=== PATIENT | male | born 1950 | race Caucasian/White ===

== ENCOUNTER 2019-04-24 09:59 | Inpatient (IN) | payer OTHER, MEDICARE ==
[~2019-04-24] VITALS: Ht 185.4 cm; Wt 73.9 kg
[2019-04-24] MEDS ORDERED: Prinivil10 MG PO (10:08)
[2019-04-24 10:21] LABS: BASOPHILS ABSOLUTE AUTO 0.05 K/mm3 (0.00-0.23); BASOPHILS PERCENT AUTO 1 % (0-2); EOSINOPHILS ABSOLUTE AUTO 0.12 K/mm3 (0.00-0.68); EOSINOPHILS PERCENT AUTO 1 % (0-6); Hematocrit 40.2 % (37.0-53.0); Hemoglobin 13.4 g/dL (13.5-17.5); IMMATURE GRAN ABSOLUTE AUTO 0.02 K/mm3 (0.00-0.10); IMMATURE GRAN PERCENT AUTO 0 % (0-1); LYMPHOCYTES PERCENT AUTO 11 % (21-46); MONOCYTES ABSOLUTE AUTO 0.53 K/mm3 (0.16-1.47); MONOCYTES PERCENT AUTO 6 % (4-13); Mean Corpuscular HGB 30.6 pg (26.0-34.0); Mean Corpuscular HGB Conc 33.3 g/dL (31.5-36.5); Mean Corpuscular Volume 92 fL (80-100); Mean Platelet Volume 11.1 fL (9.1-12.4); NEUTROPHILS ABSOLUTE AUTO 7.34 K/mm3 (1.96-9.15); NEUTROPHILS PERCENT AUTO 81 % (41-73); Platelet Count 249 K/mm3 (150-400); RDW Coefficient Variation 12.8 % (11.7-14.2); RDW Standard Deviation 43.3 fL (35.1-46.3); Red Blood Cell Count 4.38 M/mm3 (4.30-5.90); White Blood Cell Count 9.06 K/mm3 (4.00-11.30)
[2019-04-24 10:40] LABS: Influenza A Negative (NEGATIVE); Influenza B Negative (NEGATIVE)
[2019-04-24 10:46] LABS: Albumin/Globulin Ratio 0.9 (0.8-1.8); Anion Gap 8 mmol/L (6-16); Aspartate Aminotrans (AST/SGOT 33 U/L (12-37); Bilirubin, Total 0.4 mg/dL (0.1-1.0); Blood Urea Nitrogen 16 mg/dL (8-24); CO2, Blood 24 mmol/L (21-32); Calcium, Blood 8.2 mg/dL (8.5-10.1); Chloride, Blood 109 mmol/L (98-108); Globulin, Blood 3.4 g/dL (2.2-4.0); Glucose, Blood 152 mg/dL (70-99); Potassium, Blood 3.8 mmol/L (3.5-5.5); Sodium, Blood 141 mmol/L (136-145); Total Protein, Blood 6.4 g/dL (6.4-8.2)
[2019-04-24 10:48] LABS: Troponin I 0.042 ng/mL (0.000-0.040)
[2019-04-24 10:54] LABS: Alanine Aminotransfer (ALT/SGP 26 U/L (12-78); Alk Phos 59 U/L (50-136); Bun/Creatinine Ratio 21.6 (12.0-20.0); Creatinine, Blood 0.74 mg/dL (0.60-1.20); Glomerular Filtration Rate >60 (60-)
[2019-04-24 12:36] LABS: Source, Urine Clean Catch
[2019-04-24 12:40] LABS: Bilirubin, Urine Neg (Neg); Blood, Urine Neg (Neg); Glucose Qualitative, Urine Neg (Neg); Ketones, Urine Neg (Neg); Leukocyte Esterase, Urine Neg (Neg); Nitrite, Urine Neg (Neg); Protein, Urine 2+ (Neg); Specific Gravity, Urine 1.015 (1.003-1.022); Urobilinogen, Urine NORM (Normal)
[2019-04-24] MEDS ORDERED: THERA1 EACH PO (13:25)
[2019-04-24] MEDS ORDERED: ZINC220 PO (13:25)
[2019-04-24 13:32] LABS: Appearance, Urine Clear (Clear); Color, Urine Yellow (P-Yellow)
[2019-04-24 13:35] LABS: Hyaline Casts 0-2 /lpf (0-2)
[2019-04-24 13:36] LABS: Bacteria Few /hpf; Red Blood Cells, Urine 0-2 /hpf (0-2); Squamous Epithelial Cells Not Seen /hpf (Few); White Blood Cells, Urine 0-2 /hpf (0-5)
--- NOTE | 2019-04-24 15:16 | NUR ---
SHIFT SUMMARY PT ADMITTED FROM THE ER THIS AFTERNOON. HE IS A/O X 4 WITH NO C/O PAIN. PT REPORTS IT IS HARD TO TAKE A DEEP BREATH BUT HE IS FEELING MUCH BETTER NOW THAN HE DID WHEN HE ARRIVED TO THE ER THIS MORNING. HE IS ABLE TO WALK FROM THE W/C TO THE BATHROOM IND AND BACK TO BED AGAIN. PT IS AT BEDSIDE. PT IS PLEASANT AND COOPERATIVE WITH HIS CARE. PT AND WERE ORIENTED TO HIS ROOM AND NURSING STAFF, ALL QUESTIONS WERE ANSWERED UPON ARRIVAL. PT IS RESTING IN BED NOW AND ABLE TO MAKE HIS NEEDS KNOWN. CALL LIGHT IN REACH.
[2019-04-24 21:44] LABS: Adenovirus Not Detected (NOT DETECT); Bordetella pertussis Not Detected (NOT DETECT); Chlamydophila pneumoniae Not Detected (NOT DETECT); Coronavirus 229E Not Detected (NOT DETECT); Coronavirus HKU1 Not Detected (NOT DETECT); Coronavirus NL63 Not Detected (NOT DETECT); Coronavirus OC43 Not Detected (NOT DETECT); Human Metapneumovirus Not Detected (NOT DETECT); Human Rhinovirus/Enterovirus Not Detected (NOT DETECT); Influenza A Not Detected (NOT DETECT); Influenza A/2009-H1 Not Detected (NOT DETECT); Influenza A/H1 Not Detected (NOT DETECT); Influenza A/H3 Not Detected (NOT DETECT); Influenza B Not Detected (NOT DETECT); Mycoplasma pneumoniae Not Detected (NOT DETECT); Parainfluenza Virus 1 Not Detected (NOT DETECT); Parainfluenza Virus 2 Not Detected (NOT DETECT); Parainfluenza Virus 3 Not Detected (NOT DETECT); Parainfluenza Virus 4 Not Detected (NOT DETECT); Respiratory Syncytial Virus Not Detected (NOT DETECT)
[2019-04-25 02:10] LABS: Hematocrit 43.6 % (37.0-53.0); Hemoglobin 14.6 g/dL (13.5-17.5); Mean Corpuscular HGB 30.6 pg (26.0-34.0); Mean Corpuscular HGB Conc 33.5 g/dL (31.5-36.5); Mean Corpuscular Volume 91 fL (80-100); Mean Platelet Volume 10.7 fL (9.1-12.4); Platelet Count 301 K/mm3 (150-400); RDW Coefficient Variation 12.9 % (11.7-14.2); RDW Standard Deviation 43.7 fL (35.1-46.3); Red Blood Cell Count 4.77 M/mm3 (4.30-5.90); White Blood Cell Count 5.98 K/mm3 (4.00-11.30)
[2019-04-25 02:30] LABS: Anion Gap 7 mmol/L (6-16); Blood Urea Nitrogen 22 mg/dL (8-24); Bun/Creatinine Ratio 25.3 (12.0-20.0); CO2, Blood 26 mmol/L (21-32); Chloride, Blood 106 mmol/L (98-108); Creatinine, Blood 0.87 mg/dL (0.60-1.20); Glomerular Filtration Rate >60 (60-); Glucose, Blood 118 mg/dL (70-99); Magnesium, Blood 1.9 mg/dL (1.6-2.4); Phosphorus, Blood 4.2 mg/dL (2.5-4.9); Potassium, Blood 4.2 mmol/L (3.5-5.5); Sodium, Blood 139 mmol/L (136-145); Troponin I 0.017 ng/mL (0.000-0.040)
--- NOTE | 2019-04-25 04:37 | NUR ---
SHIFT SUMMARY PATIENT ALERT AND ORIENTED. SLEPT WELL ALL NIGHT AND HAD MINIMAL NEEDS. BOTH IVS PATENT AND FLUSHED. BED IN LOWEST POSITION WITH WHEELS LOCKED. CALL LIGHT AND BELONGINGS WITHIN REACH. REPORT GIVEN TO ONCOMING RN.
--- NOTE | 2019-04-25 14:43 | NUR ---
permission of care given to nursing director by pateint 04-25-2019.
--- NOTE | 2019-04-25 18:44 | NUR ---
PT HAD CARDIOLOGY CONSULT CALLED. EF 20% . PATIENT HAS HAD NO COMPLAINTS OF PAIN, NV, SOB. HE IS ALERT AND ORIENTED AND ABLE TO EXPRESS ANY NEEDS. PT TO BE NPO MD SALAS. CALL ALONA SUMMERS.
--- NOTE | 2019-04-26 04:25 | NUR ---
SHIFT SUMMARY- PT. A&O, INDEPENDENT IN ROOM. DENIED C/O PAIN OR DISCOMFORT T/O THE SHIFT. PT. NPO, SCHEDULED FOR ANGIOGRAM IN THE AM. NO ACUTE CHANGES TO CONDITION, SPOUSE AT BEDSIDE. CALL LIGHT WITHIN REACH AND SIDE RAILS UP X2. WILL CONT TO MONITOR.
[2019-04-26 05:22] LABS: BASOPHILS ABSOLUTE AUTO 0.07 K/mm3 (0.00-0.23); BASOPHILS PERCENT AUTO 1 % (0-2); EOSINOPHILS PERCENT AUTO 3 % (0-6); Hemoglobin 14.1 g/dL (13.5-17.5); IMMATURE GRAN ABSOLUTE AUTO 0.02 K/mm3 (0.00-0.10); IMMATURE GRAN PERCENT AUTO 0 % (0-1); LYMPHOCYTES ABSOLUTE AUTO 2.07 K/mm3 (0.84-5.20); LYMPHOCYTES PERCENT AUTO 26 % (21-46); MONOCYTES ABSOLUTE AUTO 0.59 K/mm3 (0.16-1.47); MONOCYTES PERCENT AUTO 7 % (4-13); Mean Corpuscular HGB 30.9 pg (26.0-34.0); Mean Corpuscular HGB Conc 33.6 g/dL (31.5-36.5); Mean Corpuscular Volume 92 fL (80-100); Mean Platelet Volume 11.3 fL (9.1-12.4); NEUTROPHILS ABSOLUTE AUTO 4.98 K/mm3 (1.96-9.15); NEUTROPHILS PERCENT AUTO 63 % (41-73); Platelet Count 249 K/mm3 (150-400); Red Blood Cell Count 4.56 M/mm3 (4.30-5.90); White Blood Cell Count 7.93 K/mm3 (4.00-11.30)
[2019-04-26 05:53] LABS: Alanine Aminotransfer (ALT/SGP 29 U/L (12-78); Albumin/Globulin Ratio 0.9 (0.8-1.8); Alk Phos 54 U/L (50-136); Anion Gap 7 mmol/L (6-16); Aspartate Aminotrans (AST/SGOT 37 U/L (12-37); Bilirubin, Total 0.4 mg/dL (0.1-1.0); Blood Urea Nitrogen 23 mg/dL (8-24); Bun/Creatinine Ratio 29.9 (12.0-20.0); CHOL/HDL RATIO 3.8; CO2, Blood 26 mmol/L (21-32); Calcium, Blood 8.4 mg/dL (8.5-10.1); Chloride, Blood 105 mmol/L (98-108); Cholesterol 160 mg/dL (50-200); Creatinine, Blood 0.77 mg/dL (0.60-1.20); Globulin, Blood 3.3 g/dL (2.2-4.0); Glomerular Filtration Rate >60 (60-); Glucose, Blood 99 mg/dL (70-99); HDL Cholesterol 42 mg/dL (>39); Sodium, Blood 138 mmol/L (136-145); Total Protein, Blood 6.3 g/dL (6.4-8.2)
[2019-04-26 06:03] LABS: LDL/HDL RATIO 2.4; Low Density Lipoprotein Chol 101 mg/dL (0-110); Triglycerides 85 mg/dL (30-160); Very Low Density Lipoprot Chol 17 mg/dL (6-32)
--- NOTE | 2019-04-26 09:07 | NUR ---
permission for care wa given at 0905 04/26/2019.
--- NOTE | 2019-04-26 14:17 | NUR ---
SHIFT SUMMARY PT HAS HAD NO ACUTE CHANGES THIS SHIFT, NO COMPLAINTS OF ANY KIND. LILIANE HELD THIS SHIFT PER DR GARCIA, PT TRANSPORTED VIA W/C TO [facility] @ [id number], BELONGINGS MOVED TO [facility]
--- NOTE | 2019-04-26 15:15 | NUR ---
ASSUMED CARE: PT ARRIVED FROM [facility] WITH TR BAND IN PLACE. SITE TO RIGHT WRIST WITH NO HEMATOMA OR BLEEDING NOTED. DENIES NUMBNESS OR TINGLING. ARM BOARD AT SITE AND PT HAS BEEN INSTRUCTED ABOUT PROTECTIVE MEASURES SO TO NOT MAKE SITE REBLEED.
--- NOTE | 2019-04-26 18:28 | NUR ---
SHIFT SUMMARY: PT'S RIGHT RADIAL SITE REMAINS WITHOUT SIGN OF BLEEDING OR HEMATOMA. TR BAND WITH 6/10CC REMOVED SO FAR. PT AMBULATORY AND INDEPENDENT IN ROOM. AT BEDSIDE. NO ACUTE NEEDS OR CONCERNS
--- NOTE | 2019-04-26 21:35 | NUR ---
TR BAND REMOVED PATIENT'S RIGHT RADIAL ACCESS SITE WNL, BAND REMOVED W/O ISSUE. NO BLEEDING, NO SWELLING, NO NEW PAIN, NO REDNESS TO SITE, WHICH WAS THEN COVERED WITH CLEAR TEGADERM DRESSING. SENSATION TO PERIPHERY INTACT, PER PATIENT, O2 SAT AT FINGERTIP 95%, CAP REFILL < 3 SEC. ARM BOARD REPLACED AND PATIENT ADVISED THAT ARM BOARD WILL STAY IN PLACE FOR THE NEXT 24-48 HOURS. PATIENT RETURN VERBALIZED INSTRUCTIONS
--- NOTE | 2019-04-27 02:18 | NUR ---
ASSUMED CARE PATIENT LYING IN BED IN NO SIGN OF DISTRESS. IN ROOM. VERIFIED STATUS OF RIGHT RADIAL ACCESS SITE W/ OUTGOING RN'S; 8 OF 12 CC OF AIR REMOVED FROM TR BAND. RADIAL SITE IS CLEAN, NO SWELLING, NO REDNESS, NO BLEEDING, NO HEMATOMA. PATIENT DENIES PAIN. STATES SENSATION INTACT TO FINGERS DISTAL TO SITE. CAP REFILL < 3 SEC TO SAME. ALL VSS, BLOOD PRESSURE SLIGHTLY DIMINISHED. WILL CONTINUE TO MONITOR AND PROVIDE CARE, CALL LIGHT IN REACH
[2019-04-27 04:06] LABS: BASOPHILS ABSOLUTE AUTO 0.07 K/mm3 (0.00-0.23); BASOPHILS PERCENT AUTO 1 % (0-2); EOSINOPHILS PERCENT AUTO 4 % (0-6); Hematocrit 45.8 % (37.0-53.0); Hemoglobin 15.2 g/dL (13.5-17.5); IMMATURE GRAN ABSOLUTE AUTO 0.01 K/mm3 (0.00-0.10); IMMATURE GRAN PERCENT AUTO 0 % (0-1); LYMPHOCYTES ABSOLUTE AUTO 1.86 K/mm3 (0.84-5.20); LYMPHOCYTES PERCENT AUTO 26 % (21-46); MONOCYTES ABSOLUTE AUTO 0.56 K/mm3 (0.16-1.47); MONOCYTES PERCENT AUTO 8 % (4-13); Mean Corpuscular HGB 30.6 pg (26.0-34.0); Mean Corpuscular HGB Conc 33.2 g/dL (31.5-36.5); Mean Corpuscular Volume 92 fL (80-100); Mean Platelet Volume 10.8 fL (9.1-12.4); NEUTROPHILS ABSOLUTE AUTO 4.42 K/mm3 (1.96-9.15); NEUTROPHILS PERCENT AUTO 61 % (41-73); Platelet Count 247 K/mm3 (150-400); RDW Coefficient Variation 12.8 % (11.7-14.2); RDW Standard Deviation 43.2 fL (35.1-46.3); Red Blood Cell Count 4.96 M/mm3 (4.30-5.90); White Blood Cell Count 7.22 K/mm3 (4.00-11.30)
[2019-04-27 04:36] LABS: Anion Gap 7 mmol/L (6-16); Blood Urea Nitrogen 22 mg/dL (8-24); Bun/Creatinine Ratio 24.8 (12.0-20.0); CO2, Blood 27 mmol/L (21-32); Calcium, Blood 8.7 mg/dL (8.5-10.1); Chloride, Blood 105 mmol/L (98-108); Creatinine, Blood 0.89 mg/dL (0.60-1.20); Glomerular Filtration Rate >60 (60-); Glucose, Blood 85 mg/dL (70-99); Potassium, Blood 4.2 mmol/L (3.5-5.5); Sodium, Blood 139 mmol/L (136-145)
--- NOTE | 2019-04-27 07:28 | NUR ---
ASSUMED PATIENT CARE. PATENT RESTING COMFORTABLY IN BED. NO SIGNS OF ACUTE DISTRESS, WCTM.
--- NOTE | 2019-04-27 07:43 | NUR ---
SHIFT SUMMARY NO NEW CHANGES. PATIENT SLEPT T/O SHIFT EXCEPT WHEN UP TO VOID, INDEPENDENT IN ROOM. NOTHING OUTSIDE OF ROUTINE MEDICATIONS, ROUTINE ROUNDINGS, AND VITALS CHECKS. RIGHT RADIAL ACCESS SITE REMAINED INTACT, NO NEW BLEEDING, REDNESS, PAIN, NOR SWELLING. ARM BOARD IN PLACE CARE AND REPORT PASSED TO ONCOMING SHIFT. BED LOCKED AND LOW, CALL LIGHT IN REACH
--- NOTE | 2019-04-27 08:19 | NUR ---
PATIENT SITTING COMFORTABLY IN BED SPEAKING WITH PROVIDER, PLAN IS TO DISCHARGE PATIENT TOMORROW AFTER CONTINUED DIURESIS AND MONITORING.
--- NOTE | 2019-04-27 12:15 | NUR ---
PATIENT SITTING COMFORTABLY IN BED EATNIG LUNCH, APPEARS TO TOLERATE MEAL WELL. NO SIGNS OF ACUTE DISTRESS, EQUAL BILATERAL CHEST RISE WITH BREATH, PATIENT DOES NOT ENDORSE CHEST PAIN NOR CHEST TIGHTNESS, WCTM.
--- NOTE | 2019-04-27 18:53 | NUR ---
NO NEW CHANGES IN PATIENT CONDITION THROUGHOUT DAY. PATIENT AND SPOUSE EDUCATED ON PLAN OF CARE AND ANTICIPATED DISCHARGE TOMORROW. PATIENT EDUCATED ON LIFE VESTBY PROVIDER AT BEDSIDE. NO NEW DRAINAGE ON WRIST INCISION. VITALS, MEDICATIONS AND NURSIN MONITORING PROVIDED ACCORDING TO UNIT PROTOCOL.
--- NOTE | 2019-04-27 19:27 | NUR ---
RELINQUISHED PATIENT CARE.
--- NOTE | 2019-04-27 19:32 | NUR ---
ASSUMED CARE PATIENT AWAKE AND ALERT IN BED, DEIES PAIN, DENIES DISCOMFORT. BREATHING EASY. BLOOD PRESSURE LOW, BUT WNL. PATIENT INDEPENDENT IN ROM, WILL CONTINUE TO MONITOR AND PROVIDE CARE
[2019-04-28 04:14] LABS: Anion Gap 6 mmol/L (6-16); Blood Urea Nitrogen 25 mg/dL (8-24); Bun/Creatinine Ratio 30.8 (12.0-20.0); CO2, Blood 25 mmol/L (21-32); Calcium, Blood 8.5 mg/dL (8.5-10.1); Chloride, Blood 107 mmol/L (98-108); Creatinine, Blood 0.81 mg/dL (0.60-1.20); Glomerular Filtration Rate >60 (60-); Glucose, Blood 90 mg/dL (70-99); Potassium, Blood 4.1 mmol/L (3.5-5.5); Sodium, Blood 138 mmol/L (136-145)
[2019-04-28] MEDS ORDERED: FURO40 PO (09:45)
[2019-04-28] MEDS ORDERED: CARV3.125 PO (09:45)
[2019-04-28] MEDS ORDERED: ATOR40TA PO (09:45)
[2019-04-28] MEDS ORDERED: POTCHL20ER PO (09:46)
[2019-04-28] MEDS ORDERED: ENTRESTO 24 MG1 EACH PO (09:47)
[2019-04-28] MEDS ORDERED: PLAVIX75 MG PO (13:22)
--- NOTE | 2019-04-28 13:45 | NUR ---
DISCHARGE INSTRUCTIONS GONE OVER WITH PT AND . INFORMED HOW TO RESEARCH LABORATORY SPECIALIST PRESCRIPTIONS AND HOW TO TAKE. WENT OVER IN DETAIL NEW MEDS. ALL QUESTIONS ANSWERED. BELONGINGS GATHERED AND GIVEN TO PT. PT WAS ESCORTED OUT VIA W/C TO POV BY RN AND WITH .
== END 2019-04-28 13:48 | disposition home or self-care (01) | DRG 286 ==
LOC: ER 09:59 → MEDS 10:00 → PCU 04-26 15:05
PROVIDERS: Emergency Medicine; Hospitalist; Internal Medicine; Internal Medicine Cardiovascular Disease; ADMIT Internal Medicine
PROC: 4A023N7 Measurement of Cardiac Sampling and Pressure, Left Heart, Percutaneous Approach (ICD-10-PCS; principal; 2019-04-26)
PROC: B2111ZZ Fluoroscopy of Multiple Coronary Arteries using Low Osmolar Contrast (ICD-10-PCS; 2019-04-26)
PROC: B2151ZZ Fluoroscopy of Left Heart using Low Osmolar Contrast (ICD-10-PCS; 2019-04-26)
DX: I11.0 Hypertensive heart disease with heart failure (principal); I50.21 Acute systolic (congestive) heart failure; I47.2 Ventricular tachycardia; G45.9 Transient cerebral ischemic attack, unspecified; N40.0 Benign prostatic hyperplasia without lower urinary tract symptoms; Z96.652 Presence of left artificial knee joint; Z88.8 Allergy status to other drugs, medicaments and biological substances; I42.9 Cardiomyopathy, unspecified
CPT/HCPCS: 0099U; 36415; 70450; 71046; 71260; 80048; 80053; 80061; 81001; 82947; 83735; 83880; 84100; 84145; 84443; 84484; 85025; 85027; 85347; 87804; 93005; 93010; 93306; 93308; 93321; 93458; 93571; 93572; 93880; 94760; 96374-59; 96375-59; 99152; 99153; 99285-25; A9270; C1769; C1887; C1894; G0378; J1644; J1650; J1940; J2250; J2405; J2930; J3010; J7030; J7040; Q9967

== ENCOUNTER 2019-09-06 08:18 | Day surgery (SDC) | payer OTHER ==
[~2019-09-06] VITALS: Ht 185.4 cm; Wt 76.6 kg
[~2019-09-06 08:18] MED LIST: ATOR40TA PO; CARV3.125 PO; ENTRESTO 24 MG1 EACH PO; FURO40 PO; PLAVIX75 MG PO; POTCHL20ER PO; Prinivil10 MG PO; SPIR25 PO; THERA1 EACH PO; ZINC220 PO
--- NOTE | 2019-09-06 09:19 | NUR ---
AT BEDSIDE DISCUSSING CONSENT FOR PACEMAKER ICD PLACEMENT. PT GIVEN ICD PACEMAKER PACKET FROM OFFICE TO REVIEW. PT DENIES ANY QUESTIONS OR CONCERNS AT THIS TIME. UNKNOWN AT THIS TIME IF PT IS TO BE ADMITTED OR TO GO HOME TODAY. VSS. WILL CONTINUE TO MONITOR.
--- NOTE | 2019-09-06 11:42 | NUR ---
PHONE CALL TO , TYSON @ [phone], INFORMING HER OF PT BEING ADMITTED FOR THE NIGHT. WILL CALL LATER FOR UPDATES.
--- NOTE | 2019-09-06 18:14 | NUR ---
SHIFT NOTE PT ARRIVED FROM HEART CENTER THIS AFTERNOON POST SINGLE CHAMBER ICD PALCEMENT SUBPECTORALIS LT CHEST. PT IS A/O X4 ANSWERING QUESTIONS APPROPRIATELY IN FULL SENTENCES. DENIES SOB OR CP. PWD AND INTACT. PRESSURE DRESSING APPLIED TO SURGICAL SITE. NO DRAINGAGE NOTED FROM SITE. DRESSING INTACT. AFTER RECIEVING HIS COREG THIS EVENING PT GOT UP AND HAD TAKEN HIS ENTERESTO AND COREG WITHOUT SPEAKING TO STAFF ABOUT TAKING HIS HOME MEDS. PT EDUCATED THAT HE WILL NOT BE TAKING HOME MEDCIATIONS WHILE HE IS HERE. PT EXPRESSED UNDERSTANDING
--- NOTE | 2019-09-06 18:22 | NUR ---
DR BERRY CONSULTED THAT PT HAS TAKEN HOME MEDS
--- NOTE | 2019-09-07 04:02 | NUR ---
ASSUMED CARE Received report from ETHAN Selby and care assumed at 1900. VVS, SBP 119 at time of arrival. Pt is alert and oriented, answering questions appropriately. Pt speaking in full sentences. Breathing appears unlabored on room air. Pt endorses 3/10 pain to left chest wall secondary to the placement of a single chamber ICD to his subpectoralis left chest. Surgical dressing is C/D/I. Left arm in sling. Per ETHAN Selby pt dosed his prescription of coreg without speaking to staff, resulting in a double dose. BP will be monitored. No acute concerns to note at shift start.
--- NOTE | 2019-09-07 06:34 | NUR ---
SHIFT SUMMARY Pt is alert and oriented, answering questions approriately. VVS. SBP 114. Breathing unlabored on room air. S/P ICD single chamber placement. LUE in sling. Pt reports a 3/10 pain at the start of shift with an increase to a 8/10 around 1022, reporting relief secondary to [place]. Pt slept throughout the shift and ambulated independently to the bathroom. Denies symptoms of CP, SOB, dizziness, or nausea. Plan for probable pt discharge today, pending MD evaluation. Pt will go down to x-ray this morning. No acute concerns or changes noted.
[2019-09-07] MEDS ORDERED: HYDR1TAB94 PO (10:47)
--- NOTE | 2019-09-07 12:06 | NUR ---
PT D/C AT 1100. IV REMOVED AND PRESSURE DRESSED, IV WAS INTACT. PT PROVIDED WITH ALL BELONGINGS AND MEDS FROM PHARMACY. PT DENIES FURHTER NEEDS, EXPRESSED UNDERSTANDING OF DC TEACHING
== END 2019-09-07 11:30 | disposition home or self-care (01) ==
LOC: MHTC 08:18 → PCU 12:51 → MHTC 09-07 11:30
DX: I42.8 Other cardiomyopathies (principal); I25.10 Atherosclerotic heart disease of native coronary artery without angina pectoris; I11.0 Hypertensive heart disease with heart failure; E78.5 Hyperlipidemia, unspecified; I50.22 Chronic systolic (congestive) heart failure; Z79.899 Other long term (current) drug therapy; Z79.02 Long term (current) use of antithrombotics/antiplatelets
CPT/HCPCS: 33249; 71045; 71046; 76937; 99152; 99153; A9270; A9270-GY; C1722; C1894; C1895; J0690; J1644; J2250; J3010; J7030; J7040

== ENCOUNTER 2020-10-30 07:55 | Day surgery (SDC) | payer OTHER ==
[~2020-10-30] VITALS: Ht 182.9 cm; Wt 73.5 kg
[~2020-10-30 07:55] MED LIST changes: +HYDR1TAB94 PO
--- NOTE | 2020-10-30 09:14 | NUR ---
10/30/[address] INTO ROMM AT 09 TIME OUT AND SITECHECK PREFORMED. DR. BOTELLO ADMINISTERED 2MG VERSED IV INJECTION START TIME 901 10CC OF LIDO WITH EPI 1: 100,000 INJECTION AT 905 VS STABLE PT TOLERATED WELL. END OF PROCEEDURE 906
--- NOTE | 2020-10-30 10:38 | NUR ---
10/30/20 1038 ESVIN ELLIOTT GIVEN AT DC
== END 2020-10-30 10:17 | disposition home or self-care (01) ==
LOC: ORSCSDS 07:55
PROVIDERS: Orthopaedic Surgery
PROC: 01N54ZZ Release Median Nerve, Percutaneous Endoscopic Approach (ICD-10-PCS; principal; 2020-10-30 09:00)
DX: G56.01 Carpal tunnel syndrome, right upper limb (principal); I10 Essential (primary) hypertension; Z86.73 Personal history of transient ischemic attack (TIA), and cerebral infarction without residual deficits; Z79.899 Other long term (current) drug therapy
CPT/HCPCS: J2250; J2704; J3010; J7120

== ENCOUNTER 2023-10-09 13:36 | Emergency (ER) | payer OTHER ==
[~2023-10-09] VITALS: Ht 182.9 cm; Wt 72.6 kg
[2023-10-09 13:41] VITALS: BP 121/60
[2023-10-09] MEDS ORDERED: Diphth,Pertuss(Acell),Tet Vac 0.5 ML VIAL IM ONE ×2 (13:45→16:00)
== END 2023-10-09 16:09 | disposition home or self-care (01) ==
LOC: ER 13:36
DX: S51.811A Laceration without foreign body of right forearm, initial encounter (principal); W26.8XXA Contact with other sharp object(s), not elsewhere classified, initial encounter; I10 Essential (primary) hypertension; Z23 Encounter for immunization; Z79.899 Other long term (current) drug therapy; Z88.8 Allergy status to other drugs, medicaments and biological substances
CPT/HCPCS: 12002; 90471; 90715; 99282-25

== ENCOUNTER 2024-07-24 22:09 | Inpatient (IN) | payer MEDICARE ==
[~2024-07-24] VITALS: Ht 185.4 cm; Wt 67.3 kg
[2024-07-24 22:50] LABS: BASOPHILS ABSOLUTE AUTO 0.02 K/mm3 (0.00-0.23); BASOPHILS PERCENT AUTO 0 % (0-2); EOSINOPHILS ABSOLUTE AUTO 0.13 K/mm3 (0.00-0.68); EOSINOPHILS PERCENT AUTO 2 % (0-6); Hematocrit 37.4 % (37.0-53.0); Hemoglobin 12.5 g/dL (13.5-17.5); IMMATURE GRAN ABSOLUTE AUTO 0.02 K/mm3 (0.00-0.10); IMMATURE GRAN PERCENT AUTO 0 % (0-1); LYMPHOCYTES PERCENT AUTO 11 % (21-46); MONOCYTES ABSOLUTE AUTO 0.54 K/mm3 (0.16-1.47); MONOCYTES PERCENT AUTO 8 % (4-13); Mean Corpuscular HGB 31.6 pg (26.0-34.0); Mean Corpuscular HGB Conc 33.4 g/dL (31.5-36.5); Mean Corpuscular Volume 94 fL (80-100); Mean Platelet Volume 11.6 fL (9.1-12.4); NEUTROPHILS ABSOLUTE AUTO 5.19 K/mm3 (1.96-9.15); NEUTROPHILS PERCENT AUTO 79 % (41-73); Platelet Count 158 K/mm3 (150-400); RDW Coefficient Variation 12.5 % (11.7-14.2); RDW Standard Deviation 43.6 fL (35.1-46.3); Red Blood Cell Count 3.96 M/mm3 (4.30-5.90)
[2024-07-24 23:07] LABS: Albumin, Blood 3.4 g/dL (3.4-5.0); Albumin/Globulin Ratio 0.9 (0.8-1.8); Bilirubin, Total 0.6 mg/dL (0.1-1.0); Bun/Creatinine Ratio 38.6 (12.0-20.0); Calcium, Blood 8.6 mg/dL (8.5-10.1); Creatinine, Blood 0.75 mg/dL (0.60-1.20); Globulin, Blood 3.8 g/dL (2.2-4.0); Potassium, Blood 3.7 mmol/L (3.5-5.5); Total Protein, Blood 7.2 g/dL (6.4-8.2)
[2024-07-24 23:13] LABS: International Normalized Ratio 0.97; Prothrombin Time Results 10.4 Sec (9.7-11.5)
[2024-07-24 23:27] LABS: Influenza A, PCR NEGATIVE (NEGATIVE); Influenza B, PCR NEGATIVE (NEGATIVE); Resp Syncytial Virus, PCR NEGATIVE (NEGATIVE); SARS-Cov-2 (COVID-19) PCR, MMC NEGATIVE (NEGATIVE)
[2024-07-24 23:38] LABS: Source, Urine Clean Catch
[2024-07-24] MEDS ORDERED: CefTRIAXone Sodium 1,000 MG in NS 50 ML IV ONE (23:45)
[2024-07-24] MEDS ORDERED: Acetaminophen 325 MG TABLET PO ONE (23:45)
[2024-07-24] MEDS ORDERED: Azithromycin 500 MG in NS 250 ML IV ONE (23:45)
[2024-07-24] MEDS ORDERED: Morphine Sulfate 4 MG/1 ML Injection IV ONE (23:45)
[2024-07-24] MEDS ORDERED: Ondansetron HCl 2 MG / ML 2ML Vial IV ONE (23:50)
[2024-07-24 23:52] LABS: Bilirubin, Urine Neg (Neg); Blood, Urine 4+ (Neg); Glucose Qualitative, Urine 3+ (Neg); Ketones, Urine Neg (Neg); Leukocyte Esterase, Urine Neg (Neg); Nitrite, Urine Neg (Neg); Protein, Urine 2+ (Neg); Urobilinogen, Urine NORM (Normal)
[2024-07-24 23:59] LABS: Amorphous Light (0-Heavy); Appearance, Urine Clear (Clear); Bacteria Not Seen /hpf; Color, Urine Yellow (P-Yellow); Mucus Light (0-Heavy); Squamous Epithelial Cells Not Seen /hpf (Few); White Blood Cells, Urine 0-2 /hpf (0-5)
[2024-07-25] MEDS ORDERED: Ondansetron 4 MG TAB PO PRN (05:40)
[2024-07-25] MEDS ORDERED: Acetaminophen 325 MG TABLET PO PRN (05:40)
[2024-07-25] MEDS ORDERED: Magnesium Hydroxide Conc 10 ML UDC PO PRN (05:40)
[2024-07-25 07:25] LABS: BASOPHILS ABSOLUTE AUTO 0.03 K/mm3 (0.00-0.23); BASOPHILS PERCENT AUTO 0 % (0-2); EOSINOPHILS ABSOLUTE AUTO 0.02 K/mm3 (0.00-0.68); EOSINOPHILS PERCENT AUTO 0 % (0-6); Hematocrit 34.2 % (37.0-53.0); Hemoglobin 11.7 g/dL (13.5-17.5); IMMATURE GRAN ABSOLUTE AUTO 0.03 K/mm3 (0.00-0.10); IMMATURE GRAN PERCENT AUTO 0 % (0-1); LYMPHOCYTES ABSOLUTE AUTO 0.87 K/mm3 (0.84-5.20); LYMPHOCYTES PERCENT AUTO 8 % (21-46); MONOCYTES ABSOLUTE AUTO 1.05 K/mm3 (0.16-1.47); MONOCYTES PERCENT AUTO 9 % (4-13); Mean Corpuscular HGB 32.5 pg (26.0-34.0); Mean Corpuscular HGB Conc 34.2 g/dL (31.5-36.5); Mean Corpuscular Volume 95 fL (80-100); NEUTROPHILS PERCENT AUTO 82 % (41-73); RDW Coefficient Variation 12.7 % (11.7-14.2); RDW Standard Deviation 44.1 fL (35.1-46.3)
[2024-07-25 07:28] LABS: Platelet Count 133 K/mm3 (150-400)
[2024-07-25 07:29] LABS: Mean Platelet Volume 11.5 fL (9.1-12.4)
[2024-07-25 07:40] LABS: Bun/Creatinine Ratio 31.1 (12.0-20.0); Calcium, Blood 8.1 mg/dL (8.5-10.1); Creatinine, Blood 0.74 mg/dL (0.60-1.20); Potassium, Blood 3.7 mmol/L (3.5-5.5)
[2024-07-25] MEDS ORDERED: Carvedilol 3.125 MG Tab PO SCH (08:00)
[2024-07-25 08:56] VITALS: BP 110/66
[2024-07-25] MEDS ORDERED: Sennosides 8.6 MG Tab PO SCH (09:00)
[2024-07-25] MEDS ORDERED: Clopidogrel Bisulfate 75 MG Tab PO SCH (09:00)
[2024-07-25] MEDS ORDERED: Spironolactone 12.5 MG TAB PO SCH (09:00)
[2024-07-25] MEDS ORDERED: Lactobacil 2-S.Thermo-Bifido 1 1 Cap PO SCH (09:00)
[2024-07-25] MEDS ORDERED: FARXIGA10 MG PO (10:51)
[2024-07-25] MEDS ORDERED: ELIQUIS5 M2 PO (11:27)
[2024-07-25 15:35] VITALS: BP 103/72
--- NOTE | 2024-07-25 16:54 | NUR ---
ADMIT NOTE PATIENT BROUGHT UP VIA WHEELCHAIR FROM ER ON ROOM AIR. HAVING LEFT CHEST/FLANK PAIN. IV ANTIBIOTIVS ONCE DAILY FOR PNA WERE GIVEN IN ER TO START AGAIN TONIGHT PER MD ORDERS. PRN TYLENOL GIVEN TODAY X1 WITH REPORTED RELIEF. PENDING SPUTUM CULTURE. PATIENT STAND-BY ASSIST NORMALLY INDEPENDENT AT BASELINE. CALLS APPROPRIATELY. WEARING NONSKID SOCKS. IV TO LEFT AC.
[2024-07-25 18:17] VITALS: BP 112/69
[2024-07-25] MEDS ORDERED: Atorvastatin 10 MG Tab PO SCH (21:00)
[2024-07-25] MEDS ORDERED: CefTRIAXone Sodium 1,000 MG in NS 100 ML IV SCH (21:00)
[2024-07-25] MEDS ORDERED: Azithromycin 500 MG in NS 250 ML IV SCH (21:00)
[2024-07-26] MEDS ORDERED: NS 250 ML IV PRN (03:15)
--- NOTE | 2024-07-26 03:20 | NUR ---
EXCAVATOR BACKHOE OPERATOR SUMMARY VSS. ALERT AND ORIENTED. AT BEDSIDE FOR SUPPORT. VOICED SLIGHT DISCOMFORT OF LEFT SIDE OF CHEST, REQUESTED AND RECEVED TYLENOL. MED EFFECTIVE, HAS BEEN RESTING QUIETLY WITH FEW INTERRUPTIONS SINCE. IV ANTIBIOTICS INFUSED PER MD ORDER. ABLE TO REPOSITION SELF IN BED WITHOUT ASSIST/ UP AD RAMAN. CALL LIGHT IN REACH, RAILS UP X 2 AND BED IN LOW POSITION FOR SAFETY. WILL CONTINUE TO MONITOR. WAITING FOR SPUTUM SAMPLE FOR LAB TEST. SPUTUM CUP AT BEDSIDE.
[2024-07-26 04:28] VITALS: BP 105/60
[2024-07-26 04:33] LABS: BASOPHILS ABSOLUTE AUTO 0.03 K/mm3 (0.00-0.23); BASOPHILS PERCENT AUTO 0 % (0-2); EOSINOPHILS ABSOLUTE AUTO 0.26 K/mm3 (0.00-0.68); EOSINOPHILS PERCENT AUTO 3 % (0-6); Hematocrit 37.1 % (37.0-53.0); Hemoglobin 12.6 g/dL (13.5-17.5); IMMATURE GRAN ABSOLUTE AUTO 0.02 K/mm3 (0.00-0.10); IMMATURE GRAN PERCENT AUTO 0 % (0-1); LYMPHOCYTES ABSOLUTE AUTO 1.22 K/mm3 (0.84-5.20); LYMPHOCYTES PERCENT AUTO 14 % (21-46); MONOCYTES ABSOLUTE AUTO 0.87 K/mm3 (0.16-1.47); MONOCYTES PERCENT AUTO 10 % (4-13); Mean Corpuscular HGB 32.2 pg (26.0-34.0); Mean Corpuscular Volume 95 fL (80-100); Mean Platelet Volume 11.2 fL (9.1-12.4); NEUTROPHILS ABSOLUTE AUTO 6.52 K/mm3 (1.96-9.15); NEUTROPHILS PERCENT AUTO 73 % (41-73); Platelet Count 151 K/mm3 (150-400); RDW Coefficient Variation 12.6 % (11.7-14.2); RDW Standard Deviation 43.8 fL (35.1-46.3); Red Blood Cell Count 3.91 M/mm3 (4.30-5.90); White Blood Cell Count 8.92 K/mm3 (4.00-11.30)
[2024-07-26 04:57] LABS: Albumin, Blood 2.9 g/dL (3.4-5.0); Albumin/Globulin Ratio 0.7 (0.8-1.8); Bilirubin, Total 0.9 mg/dL (0.1-1.0); Bun/Creatinine Ratio 24.4 (12.0-20.0); Calcium, Blood 8.8 mg/dL (8.5-10.1); Creatinine, Blood 0.74 mg/dL (0.60-1.20); Globulin, Blood 3.9 g/dL (2.2-4.0); Potassium, Blood 3.9 mmol/L (3.5-5.5); Total Protein, Blood 6.8 g/dL (6.4-8.2)
[2024-07-26 07:29] VITALS: BP 121/66
[2024-07-26] MEDS ORDERED: Sacubitril/Valsartan 24 MG-26 MG Tab PO SCH (09:00)
[2024-07-26] MEDS ORDERED: Multivitamins 1 Tab PO SCH (09:00)
[2024-07-26] MEDS ORDERED: Spironolactone 25 MG Tab PO SCH (09:00)
[2024-07-26] MEDS ORDERED: Apixaban 5 MG Tab PO SCH (09:00)
[2024-07-26] MEDS ORDERED: Acetaminophen325 M1 PO (13:24)
[2024-07-26] MEDS ORDERED: VISBIOME 112.51 EACH PO (13:25)
[2024-07-26] MEDS ORDERED: AMOCLA875 PO (13:27)
[2024-07-26] MEDS ORDERED: ZITHROMAX500 MG PO (13:29)
--- NOTE | 2024-07-26 14:28 | NUR ---
DISCHARGE NOTE PATIENT EDUCATED ON DISCHARGE PACKET AND INSTRUCTIONS AND NEW PRESCRIPTIONS. IV REMOVED. TO FOLLOW UP WITH PCP WITHIN TWO WEEKS. NEW PRESCRIPTIONS FAXED TO [facility]. PATIENT ESCORTED DOWN VIA WHEELCHAIR BY STONE DERRICKMAN AND RIGGER. NO NEW QUESTIONS OR CONERNS PRIOR TO DC.
[2024-07-27] MEDS ORDERED: Empagliflozin 25 MG TAB PO SCH (09:10)
== END 2024-07-26 13:51 | disposition home or self-care (01) | DRG 871 ==
LOC: ER 22:09 → ERHOLD 22:10 → MEDS 07-25 08:47
PROVIDERS: Emergency Medicine; Family Medicine; ADMIT Internal Medicine
PROC: 3E03329 Introduction of Other Anti-infective into Peripheral Vein, Percutaneous Approach (ICD-10-PCS; principal; 2024-07-24)
PROC: 4B02XTZ Measurement of Cardiac Defibrillator, External Approach (ICD-10-PCS; 2024-07-24)
DX: A41.9 Sepsis, unspecified organism (principal); J18.9 Pneumonia, unspecified organism; J96.01 Acute respiratory failure with hypoxia; I50.22 Chronic systolic (congestive) heart failure; J90 Pleural effusion, not elsewhere classified; I11.0 Hypertensive heart disease with heart failure; E86.0 Dehydration; I48.91 Unspecified atrial fibrillation; I25.10 Atherosclerotic heart disease of native coronary artery without angina pectoris; Z88.6 Allergy status to analgesic agent; Z79.02 Long term (current) use of antithrombotics/antiplatelets; Z79.899 Other long term (current) drug therapy; Z95.810 Presence of automatic (implantable) cardiac defibrillator
CPT/HCPCS: 0241U; 36415; 71046; 71260; 74177; 80048; 80053; 81001; 83605; 83880; 84145; 84484; 85025; 85610; 85730; 87040; 87070; 87205; 93005; 93010; 96365-59; 96366; 96375; 99285-25; A9270; G0378; J0456; J0696; J2270; J2405; J7050; Q9967